=== PATIENT | male | born 1945 | race Two or more races ===

== ENCOUNTER 2022-01-23 15:09 | Inpatient (IN) | payer OTHER ==
[~2022-01-23] VITALS: Ht 177.8 cm; Wt 89.8 kg
[2022-01-23] MEDS ORDERED: LOTREL 5-20 MG1 CAP (15:25)
--- NOTE | 2022-01-23 15:33 | NUR ---
PACIENTE QUE LLEGA AMBULANDO EN COMPANIA DE FAMILIAR REFIERE DOLOR EN EL ESTOMAGO QUE IRRADIA HACIA EL PECHO Y FALTA DE AIRE. NO VOMITOS NI OTRO SINTOMA.
--- NOTE | 2022-01-23 16:35 | NUR ---
[place]. OFRECIDO POR MR. PINEDO QUIEN ORIENTA AL PACIENTE SOBRE EL [place]. EXTRAE MUESTRAS DE MONCHO BAJO MEDIDAS ASPETICAS ROTULA Y ENVIA AL LABORATORIO. CANALIZA Y ADMINISTRA MEDICAMENTOS.
== END 2022-02-07 13:20 | disposition designated cancer center or children's hospital (05) | DRG 280 ==
LOC: ER 15:09 → ICU-2 20:50 → ICU 01-26 10:24 → SURG 01-27 19:49 → MEDJ 02-05 14:17
PROVIDERS: ADMIT Internal Medicine; ATTEND Internal Medicine
PROC: B246YZZ Ultrasonography of Right and Left Heart using Other Contrast (ICD-10-PCS; 2022-01-23)
PROC: 3E0F7SF Introduction of Other Gas into Respiratory Tract, Via Natural or Artificial Opening (ICD-10-PCS; principal; 2022-01-25)
PROC: BT41ZZZ Ultrasonography of Right Kidney (ICD-10-PCS; 2022-01-28)
PROC: 4A12X4Z Monitoring of Cardiac Electrical Activity, External Approach (ICD-10-PCS; 2022-01-28)
PROC: 0TJB8ZZ Inspection of Bladder, Via Natural or Artificial Opening Endoscopic (ICD-10-PCS; 2022-01-31)
PROC: BW21ZZZ Computerized Tomography (CT Scan) of Abdomen and Pelvis (ICD-10-PCS; 2022-01-31)
PROC: 30233N1 Transfusion of Nonautologous Red Blood Cells into Peripheral Vein, Percutaneous Approach (ICD-10-PCS; 2022-02-06)
DX: I21.4 Non-ST elevation (NSTEMI) myocardial infarction (principal); I50.33 Acute on chronic diastolic (congestive) heart failure; J96.21 Acute and chronic respiratory failure with hypoxia; J90 Pleural effusion, not elsewhere classified; N17.9 Acute kidney failure, unspecified; S37.33XA Laceration of urethra, initial encounter; I25.9 Chronic ischemic heart disease, unspecified; N18.9 Chronic kidney disease, unspecified; M25.562 Pain in left knee; I25.10 Atherosclerotic heart disease of native coronary artery without angina pectoris; R33.9 Retention of urine, unspecified; N36.8 Other specified disorders of urethra; R31.9 Hematuria, unspecified; N40.0 Benign prostatic hyperplasia without lower urinary tract symptoms; I11.0 Hypertensive heart disease with heart failure; D64.9 Anemia, unspecified; Z20.822 Contact with and (suspected) exposure to COVID-19